=== PATIENT | male | born 1985 | race Caucasian/White ===

== ENCOUNTER → 2019-01-24 | Day surgery (SDC) | payer MEDICARE ==
[~2019-01-24] MED LIST: ARICEPT5 MG PO; ATIVAN2 MG PO; BUPIVACAINE 0.5%/EPI 30 ML SDV INJ ONE; BUPIVACAINE HCL 0.5% INJ 30 ML VIAL INJ ONE; CEFAZOLIN SOD 1 GM/NS 50ML 50 ML IV ONE; DEPAKOTE ER500 MG PO; DEXAMETHASONE SOD PHOS INJ 4 MG/ML VIAL ONE; FENTANYL CITRATE/PF 100MCG/2 ML INJ ONE; KEPPRA500 MG PO; KETOROLAC TROMETHAMINE 30 MG/ML VIAL ONE; LIDOCAINE HCL 2% LOCAL INJ 5 ML SDV VIAL INJ ONE; MIDAZOLAM HCL 2 MG/2 ML VIAL ONE; NEOSTIGMINE 1 MG/ML 10ML VIAL ONE; ONDANSETRON HCL INJ 2MG/ML 2ML 2 MG/ML VIAL ONE; ONFI10 MG PO; PANTOPRAZOLE SO40 MG PO; PROPOFOL IV EMULSION 10 MG/ML 20 ML VIAL ONE; ROCURONIUM BROMIDE 10 MG/ML 5ML VIAL ONE; SEVOFLURANE INHAL SOLN 250 ML PEN BTL ONE; SUCCINYLCHOLINE 200 MG/10 ML SYR ONE; VIMPAT200 MG PO; [UNRECOGNIZED DRUG - REMARK] PO
--- OUTSIDE RECORDS SUMMARY | 2019-01-24 06:09 | XMS REPORT ---
Author Author [facility] Address Unknown Phone Unavailable Care Team Providers Care Sole Leveler Name Role Phone Unavailable Unavailable Payers Payer Name Policy Type Policy Number Effective Date Expiration Date Problems This patient has no known problems. Allergies, Adverse Reactions, Alerts Allergy Name Allergy Type Status Severity Reaction(s) Onset Date Inactive Date Treating Clinician Comments No Known Allergies DA Active U 2017-10-02 00:00:00 Medications This patient has no known medications. Results Test Description Test Time Test Comments Text Results Atomic Results Result Comments URINALYSIS COMPLETE 2018-11-16 16:11:00 UA COLOR (test code=COLU) Light-Yellow YELLOW UA APPEARANCE (test code=APPU) CLEAR CLEAR UA GLUCOSE DIPSTICK (test code=DGLUU) NEGATIVE mg/dL NEGATIVE UA BILIRUBIN DIPSTICK (test code=BILU) NEGATIVE mg/dL NEGATIVE UA KETONE DIPSTICK (test code=KETU) NEGATIVE mg/dL NEGATIVE UA SPECIFIC GRAVITY (test code=SGU) 1.011 1.001-1.035 UA BLOOD DIPSTICK (test code=CLIF) Negative mg/dL NEGATIVE UA PH DIPSTICK (test code=CONNIE) 6.0 5.0-8.0 UA PROTEIN DIPSTICK (test code=PROU) NEGATIVE mg/dL NEGATIVE UA UROBILINIOGEN DIPSTICK (test code=URO) Normal mg/dL NEGATIVE UA NITRITE DIPSTICK (test code=AKIN) NEGATIVE NEGATIVE UA LEUKOCYTE ESTERASE W REFLEX (test code=LEUUR) NEGATIVE Brian/uL NEGATIVE UA WBC (test code=WBCU) 0-5 per HPF 0-5 UA RBC (test code=RBCU) 0-2 #/HPF 0-5 UA EPITHELIAL CELLS (test code=EPIU) FEW per HPF FEW UA BACTERIA (test code=BACU) NONE SEEN #/HPF NONE UA MUCUS (test code=MUCU) FEW #/LPF FEW Urine Source? Clean CatchURINALYSIS [id number] 16:10:00* Test Item Value Reference Range Comments UA COLOR (test code=COLU) Light-Yellow YELLOW UA APPEARANCE (test code=APPU) CLEAR CLEAR UA GLUCOSE DIPSTICK (test code=DGLUU) NEGATIVE mg/dL NEGATIVE UA BILIRUBIN DIPSTICK (test code=BILU) NEGATIVE mg/dL NEGATIVE UA KETONE DIPSTICK (test code=KETU) NEGATIVE mg/dL NEGATIVE UA SPECIFIC GRAVITY (test code=SGU) 1.011 1.001-1.035 UA BLOOD DIPSTICK (test code=CLIF) Negative mg/dL NEGATIVE UA PH DIPSTICK (test code=CONNIE) 6.0 5.0-8.0 UA PROTEIN DIPSTICK (test code=PROU) NEGATIVE mg/dL NEGATIVE UA UROBILINIOGEN DIPSTICK (test code=URO) Normal mg/dL NEGATIVE UA NITRITE DIPSTICK (test code=AKIN) NEGATIVE NEGATIVE UA LEUKOCYTE ESTERASE W REFLEX (test code=LEUUR) NEGATIVE Brian/uL NEGATIVE UA WBC (test code=WBCU) per HPF 0-5 UA RBC (test code=RBCU) per HPF 0-5 UA EPITHELIAL CELLS (test code=EPIU) per HPF Few UA BACTERIA (test code=BACU) per HPF NONE Urine Source? Clean CatchBASIC METABOLIC [id number] 13:38:00* Test Item Value Reference Range Comments SODIUM (test code=NA) 138 mmol/L 136-145 POTASSIUM (test code=K) 3.6 mmol/L 3.5-5.1 CHLORIDE (test code=CL) 105.0 mmol/L 98-107 CARBON DIOXIDE (test code=CO2) 26.0 mmol/L 21-32 ANION GAP (test code=GAP) 10.6 10-20 GLUCOSE (test code=GLU) 86 mg/dL 74-106 BLOOD UREA NITROGEN (test code=BUN) 12 mg/dL 7-18 GLOMERULAR FILTRATION RATE (test code=GFR) > 60 mL/min >=60 Estimated GFR by using Modified MDRD formula.Chronic kidney disease is defined as either kidney damageor GFR <60 mL/min/1.73 m2 for >3 months. CREATININE (test code=CREAT) 0.90 mg/dL 0.7-1.3 BUN/CREATININE RATIO (test code=BUN/CREA) 13.3 10-20 CALCIUM (test code=CA) 8.4 mg/dL 8.5-10.1 HEPATIC FUNCTION [id number] 13:38:00* Test Item Value Reference Range Comments TOTAL PROTEIN (test code=PROT) 7.1 gram/dL 6.4-8.2 ALBUMIN (test code=ALB) 3.8 g/dL 3.4-5.0 GLOBULIN (test code=GLOB) 3.3 gram/dL 2.7-4.2 ALBUMIN/GLOBULIN RATIO (test code=A/G) 1.2 0.75-1.50 BILIRUBIN TOTAL (test code=BILT) 0.30 mg/dL 0.0-1.0 BILIRUBIN DIRECT (test code=BILD) 0.08 mg/dL 0.0-0.20 SGOT/AST (test code=AST) 21 IUnit/L 15-37 SGPT/ALT (test code=ALT) 18 IUnit/L 12-78 ALKALINE PHOSPHATASE TOTAL (test code=ALKP) 48 IUnit/L 45-117 Note change in reference range due to change in reagent. [id number] 13:38:00* Test Item Value Reference Range Comments LIPASE (test code=LIP) 183 U/L 73.0-393.0 VALPROIC ACID (DEPAKENE)2018-11-16 13:03:00* Test Item Value Reference Range Comments VALPROIC ACID (DEPAKENE) (test code=VALP) 74.0 mcg/mL 50.0-100.0 CBC W/O [id number] 12:52:00* Test Item Value Reference Range Comments WHITE BLOOD CELL (test code=WBC) 7.1 K/mm3 4.5-12.5 RED BLOOD CELL (test code=RBC) 4.79 mill/mm3 4.0-5.8 HEMOGLOBIN (test code=HGB) 14.2 gram/dL 13.0-17.5 HEMATOCRIT (test code=HCT) 43.2 % 42.0-52.0 MEAN CELL VOLUME (test code=MCV) 90.2 fL 80-98 MEAN CELL HGB (test code=MCH) 29.6 picogram 27.0-33.0 MEAN CELL HGB CONCETRATION (test code=MCHC) 32.9 gram/dL 33.0-36.0 RED CELL DISTRIBUTION WIDTH (test code=RDW) 11.9 % 11.6-16.2 PLATELET COUNT (test code=PLT) 185 K/mm3 150-450 MEAN PLATELET VOLUME (test code=MPV) 10.0 fL 6.7-11.0 BASIC METABOLIC [id number] 12:46:00* Test Item Value Reference Range Comments SODIUM (test code=NA) 138 mmol/L 136-145 POTASSIUM (test code=K) 3.6 mmol/L 3.5-5.1 CHLORIDE (test code=CL) 105.0 mmol/L 98-107 CARBON DIOXIDE (test code=CO2) mmol/L 21-32 ANION GAP (test code=GAP) 10-20 GLUCOSE (test code=GLU) mg/dL 74-106 BLOOD UREA NITROGEN (test code=BUN) mg/dL 7-18 GLOMERULAR FILTRATION RATE (test code=GFR) mL/min >=60 CREATININE (test code=CREAT) mg/dL 0.7-1.3 BUN/CREATININE RATIO (test code=BUN/CREA) 10-20 CALCIUM (test code=CA) mg/dL 8.5-10.1 HEPATIC FUNCTION [id number] 12:46:00* Test Item Value Reference Range Comments TOTAL PROTEIN (test code=PROT) gram/dL 6.4-8.2 ALBUMIN (test code=ALB) g/dL 3.4-5.0 GLOBULIN (test code=GLOB) gram/dL 2.7-4.2 ALBUMIN/GLOBULIN RATIO (test code=A/G) 0.75-1.50 BILIRUBIN TOTAL (test code=BILT) mg/dL 0.0-1.0 BILIRUBIN DIRECT (test code=BILD) mg/dL 0.0-0.20 SGOT/AST (test code=AST) IUnit/L 15-37 SGPT/ALT (test code=ALT) IUnit/L 12-78 ALKALINE PHOSPHATASE TOTAL (test code=ALKP) IUnit/L 45-117 [id number] 12:46:00* Test Item Value Reference Range Comments LIPASE (test code=LIP) U/L 73.0-393.0 MR, BRAIN, [id number] 09:44:00FINAL REPORT MRI Brain with and without contrast INDICATION: Malignant neoplasm frontal lobe. TECHNIQUE: Multiplanar, multisequence MR imaging of the brain was performed, utilizing the following imaging sequences: Axial T1, T2, FLAIR, DWI, GRE; sagittal T1; postcontrast axial, sagittal, and coronal T1. COMPARISON: MRI brain 07/07/2017, 06/10/2016 FINDINGS:Left sided craniotomy changes are again noted with a parietal operative cavity with hemosiderin staining. Faint operative cavity and adjacent parenchymal enhancement is stable. The surrounding nonenhancing signal changes extending into the deep white matter and perisylvian region with stable as are nonenhancing signal changes in the splenium corpus callosum and right parietal periventricular white matter. A left sided extra axial collection demonstrates signal characteristics similar to CSF and is stable in size. There is parenchymal contouring without midline shift. There is no acute infarct, hematoma, new extra axial collection, or hydrocephalus. A prominent cisterna magna is again noted. There is generalized parenchymal volume loss. The major vascular flow voids are maintained. The sella, craniocervical j unction, and orbits are unremarkable. The sinuses and mastoid air cells are well aerated. IMPRESSION: Since 07/07/2017, no significant change in intracranial ap pearance, and no new/acute intracranial abnormality. Signed: Krishna Diop MDReport Verified Date/Time: 10/15/2017 09:44:36 Reading Location: [address] Neuro Reading Room Electronically signed by: CHAPIN DIOP M.D. on 0 10/15/2017 09:44 AM MR, BRAIN, [id number] 10:02:00FINAL REPORT MRI brain with and without contrast 07/07/2017 at 0938. CLINICAL HISTORY: Malignant neoplasm frontal lobe. TECHNIQUE: Multiplanar, multisequence MR imaging of the brain was performed, utilizing the following imaging sequences: Axial T1, T2, FLAIR, GRE, DWI/ADC; sagittal T1; postcontrast axial, sagittal, and coronal T1. COMPARISON: 06/10/2016, 03/11/2016, 12/11/2015, 09/23/2015, 07/01/2015, 05/29/2015. FINDINGS: Left-sided craniotomy changes remain evident with an underlying inferolateral parietal resection cavity. Curvilinear enhancement at the anterosuperior margin of the surgical cavity is unchanged. Nonenhancing T2/FLAIR signal abnormality in the left parietal lobe is unchanged. A 10 mm thick left extra-axial fluid collection contouring the left frontal lobe is unchanged. There remains no acute infarct, hematoma, hydrocephalus, or co ncerning mass effect. There is a prominent cisterna magna. There is generalized parenchymal volume loss. Normal appearing flow-voids are present within the heather r intracranial vascular structures. The sellar and pineal regions are normal. Th e craniovertebral junction is intact. The orbits, face, and skull base are witho ut worrisome finding. IMPRESSION: Since 06/10/2016, no new intracranial abnormal ity and no significant change in intracranial appearance. Signed: Gabe Lindsey MDReport Verified Date/Time: 07/07/2017 10:02:59 Reading Location: [address] Neuro Reading Room Electronically signed by: ELLIOT LINDSEY M.D. on 10:02 AM
--- OUTSIDE RECORDS SUMMARY | 2019-01-24 06:09 | XMS REPORT | Clinical Summary ---
Author Author [facility] Address Unknown Phone Unavailable Care Team Providers Care Instructor Industrial Design Name Role Phone Sharpless PCP Allergies Not on File Medications Not on file Active Problems Not on file Social History Date Tobacco Use Types Packs/Day Years Used Never Assessed Sex Assigned at Date Recorded Not on file Industry Job Start Date Occupation Not on file Not on file Not on file Travel End Travel History Travel Start No recent travel history available. Last Filed Vital Signs Not on file Plan of Treatment Not on file Results Not on fileafter 01/23/2018 Insurance Payer Benefit Subscriber ID Type Phone Address Plan / Group MEDICARE MEDICARE A xxxxxxxxxx Medicare B
--- NOTE | 2019-01-24 07:10 | NUR ---
SPIRITUAL CARE - Pre-Surgery Assessment: Pt in bed. Pt's mother at bedside. Pt reported supportive attention from family and friends. Intervention: I provided pastoral presence, hospitality, and sympathetic listening. I acquainted pt with availability of dye weigher while hospitalized. Outcome: Pt expressed appreciation for visit. No need for follow up indicated at this time. MATILDE Quirozlain Spiritual Care Department O: [phone] Pager: [phone] ([phone] number calling from)
[2019-01-24 09:12] VITALS: BP 110/77
--- NOTE | 2019-01-24 10:07 | Operative Report ---
DATE OF PROCEDURE: 01/24/2019 SURGEON: Marcus Montilla MD HEALTH OCCUPATIONS INSTRUCTOR: Rodrigo Freire PA-C. PREOPERATIVE DIAGNOSIS: Complications of internal fixation, right clavicle. POSTOPERATIVE DIAGNOSIS: Complications of internal fixation, right clavicle. PROCEDURE: Hardware removal, right clavicle. INDICATIONS: The patient is a 33-year-old gentleman, who is status post an open reduction with internal fixation of his right clavicle. This was done years ago and his fracture has gone on to heal. However, the hardware is directly underneath the skin. He complains of significant discomfort with any direct contact of the hardware. He would like to have the hardware removed. The risks and benefits including the possibility of some persistent discomfort were explained. He states he understands and wishes to proceed. PROCEDURE IN DETAIL: The patient was brought to the operating room and placed under general anesthetic. He received prophylactic antibiotics in the holding area. His right chest and clavicular region were prepped and draped in a sterile manner. A preoperative time-out was performed. Most of the previous scar was opened with a surgical knife. The skin was very thin directly over the prominent hardware. The hardware was carefully exposed. Each screw was carefully removed, making sure not to strip the hardware. The plate was then carefully removed. The bone surface of the clavicle was gently contoured with a rongeur. All sharp edges and overgrowth of bone were smoothed down. The wound was then irrigated and closed with subcuticular Vicryl and nylon stitches. An intraoperative x-ray confirmed complete hardware removal and no evidence of any new fracture. A sterile bandage was applied. He was extubated and transported to the recovery room in stable condition. Estimated blood loss was 10 mL. At the end of the procedure, all needle and sponge counts were correct. Marcus Montilla MD DR/SHEY /[id number]
== END | disposition home or self-care (01) ==
LOC: OR 06:06 → EDBD 10:00
PROVIDERS: ATTEND Specialist
DX: T84.89XA Other specified complication of internal orthopedic prosthetic devices, implants and grafts, initial encounter (principal); T84.298A Other mechanical complication of internal fixation device of other bones, initial encounter; Y83.8 Other surgical procedures as the cause of abnormal reaction of the patient, or of later complication, without mention of misadventure at the time of the procedure; Z88.8 Allergy status to other drugs, medicaments and biological substances; G40.909 Epilepsy, unspecified, not intractable, without status epilepticus; Z87.891 Personal history of nicotine dependence; Z92.21 Personal history of antineoplastic chemotherapy; Z92.3 Personal history of irradiation; Z85.841 Personal history of malignant neoplasm of brain; Z87.81 Personal history of (healed) traumatic fracture
CPT/HCPCS: 20680; 76000; J0690; J1100; J1885; J2001; J2250; J2405; J2704; J2710; J3010